=== PATIENT | female | born 1950 | race Asian ===

== ENCOUNTER 2016-12-15 18:19 | Inpatient (IN) | payer OTHER ==
[~2016-12-15] VITALS: Ht 162.6 cm; Wt 53.1 kg
[~2016-12-15 18:19] MED LIST: CLONIDINE HCL0.1 MG PO; GEMFIBROZIL600 MG PO; METFORMIN500 M1 PO
--- NOTE | 2016-12-15 18:28 | NUR ---
PT BIBA C/O SOB SINCE THIS PM. PT JUST HAD A RECENT CABG X 3 A MONTH AGO AT [facility] [place]. PLACED PT ON CM,VSS. PT A/O X4, PT'S SIDERAILS UP X 2. AWAITING DR MURILLO
--- NOTE | 2016-12-15 18:56 | NUR ---
PXRAY DONE AT BEDSIDE
--- NOTE | 2016-12-15 19:08 | NUR ---
REPORT GIVEN TO CHRISTIANO, ENDORSED PT CARE ACCORDINGLY.
[2016-12-15 19:24] LABS: BASOPHIL % 0.3 % (0-2); PLATELET COUNT 181 x10^3mcL (130-400); RED CELL DISTRIBUTION WIDTH 13.6 % (11.5-14.5)
--- NOTE | 2016-12-15 19:31 | NUR ---
PT AWAKE WITH EYES CLOSED; ABLE TO ASNWER QUESTIONS APPROPRIATELY. PT'S FAMILY FRIENDS AT BEDSIDE. PT BREATHING EVEN AND UNLABORED; PT VOMITED SMALL AMOUNT OF DARK EMESIS. BED IN HIGH FOWLERS POSITION, SUCTION AT BEDSIDE
[2016-12-15 19:33] LABS: CALCIUM 9.6 mg/dL (8.5-10.1); CARBON DIOXIDE 25.9 mmol/L (21-32); CHLORIDE SERUM 101 mmol/L (98-107); CREATININE SERUM 1.4 mg/dL (0.6-1.0); GFR1 40 mL/min; GLUCOSE SERUM 227 mg/dL (74-106); POTASSIUM SERUM 3.4 mmol/L (3.5-5.1); SODIUM SERUM 139 mmol/L (136-145)
[2016-12-15 19:37] LABS: CK-MB < 0.5 ng/mL (0-3.6); CREATINE KINASE 36 U/L (26-192); FREE T4 1.09 ng/dL (0.76-1.46); FREE THYROXINE INDEX 3.1 ug/dL (1.4-4.5)
[2016-12-15 19:38] LABS: ALBUMIN 3.9 g/dL (3.4-5.0); ALKALINE PHOSPHATASE 63 U/L (46-116); ALT/SGPT 16 U/L (14-59); AST/SGOT 16 U/L (15-37); BILIRUBIN TOTAL 0.4 mg/dL (0.20-1.00)
[2016-12-15 19:39] LABS: C REACTIVE PROTEIN < 0.2 mg/dL (<=0.9)
[2016-12-15 19:47] LABS: T3 TOTAL 0.61 ng/mL
[2016-12-15] MEDS ORDERED: METFORMIN HCL1000 MG PO (20:22)
[2016-12-15] MEDS ORDERED: METOPROLOL SUCC25 M2 PO (20:23)
[2016-12-15] MEDS ORDERED: VITAMIN D32000 I2 PO (20:24)
[2016-12-15] MEDS ORDERED: CHLORTHALIDONE25 MG PO (20:24)
[2016-12-15] MEDS ORDERED: LIPI20 PO (20:24)
[2016-12-15] MEDS ORDERED: ASPIR 8181 MG PO (20:24)
--- NOTE | 2016-12-15 20:29 | NUR ---
PT TO CT
[2016-12-15 20:35] LABS: CHOLESTEROL/HDL RATIO 2.3
--- NOTE | 2016-12-15 20:38 | NUR ---
REPORT GIVEN TO BRITTNEY TO ASSUME CARE OF PT
[2016-12-15 20:47] LABS: ERYTHROCYTE SED RATE 0 mm/hr (0-30)
--- NOTE | 2016-12-15 20:51 | NUR ---
URINE SENT TO LAB
--- NOTE | 2016-12-15 20:52 | NUR ---
RECEIVED PT FROM ED VIA [facility], CAME IN DUE TO SOB FOR 2 WEEKS AND VOMITING X1 DAY. AAOX4. DENIES HEADACHE/DIZZINESS. NO SOB NOTED, LUNG SOUNDS CTA. ON 2LPM/NC, O2 SAT=94%. DENIES CHEST PAIN/PRESSURE, NSR ON THE MONITOR. DENIES NAUSEA/VOMITING/ABDOMINAL PAIN. PT UNSURE OF THE COLOR OF THE VOMITUS BEFORE ADMISSION, NOTED BLACKISH VOMITUS ON PT'S GOWN. GENERALIZED WEAKNESS NOTED. SIDE RAILS UPX2. CALL LIGHT ON REACH. PRIMARY NURSE SHASHI AT BEDSIDE FOR CONTINUITY OF CARE
[2016-12-15 21:07] LABS: UA SPECIFIC GRAVITY 1.015 (1.005-1.035); microscopic required? YES; urine erythrocyte TRACE (NEGATIVE)
[2016-12-15 21:11] VITALS: BP 135/37
[2016-12-15 21:17] LABS: AMPHETAMINE QUAL UR NONE DETECTED (NEG <=1000)
[2016-12-15 21:21] VITALS: Ht 162.6 cm; Wt 53.1 kg
[2016-12-15 22:00] VITALS: BP 120/55
--- NOTE | 2016-12-15 22:25 | NUR ---
NOTED PT HAS SCATTERED PINPOINT REDNESS ON THE RIGHT ARM.
[2016-12-15 23:32] VITALS: BP 120/55
[2016-12-16 00:13] LABS: BASOPHIL % 0.4 % (0-2); PLATELET COUNT 145 x10^3mcL (130-400); RED CELL DISTRIBUTION WIDTH 13.5 % (11.5-14.5)
--- NOTE | 2016-12-16 01:28 | NUR ---
CALLED DR. MACKENZIE RE:K GUILLERMINA ORDER WITH LIDOCAINE.MEDS NOT AVAILABLE TIL PHARMACY OPEN LATER.OK TO START MEDS WHEN AVAILABLE.
[2016-12-16 06:24] VITALS: BP 123/44
[2016-12-16 06:45] LABS: BASOPHIL % 0.3 % (0-2); PLATELET COUNT 150 x10^3mcL (130-400); RED CELL DISTRIBUTION WIDTH 13.1 % (11.5-14.5)
--- NOTE | 2016-12-16 06:54 | NUR ---
MADE ROUNDS. PT IS AWAKE. GAVE DIABETES TEACHING. COMFORTABLY LAYING IN BED. DENIES PAIN. STATES THAT SHE FEELS MUCH BETTER HAVING THE NC IN PLACE. BED IN LOWEST POSITION. CALL LIGHT WITHIN REACH. WILL CONTINUE MONITOR AND ENDORSE ALL CARE TO ONCOMING NURSE.
[2016-12-16 07:12] LABS: CALCIUM 8.6 mg/dL (8.5-10.1); CARBON DIOXIDE 25.9 mmol/L (21-32); CREATININE SERUM 1.1 mg/dL (0.6-1.0); MAGNESIUM 1.5 mg/dL (1.8-2.4); PHOSPHOROUS 3.3 mg/dL (2.5-4.9); POTASSIUM SERUM 3.7 mmol/L (3.5-5.1)
--- NOTE | 2016-12-16 08:00 | NUR ---
PATIENT AWAKE AND ALERT, NO ACUTE DISTRESS NOTED, VITAL SIGNS STABLE. IV ACCESS INTACT TO LEFT FOREARM, IV FLUID INFUSION IN PROGRESS VIA IV PUMP. IV SITE WITHOUT SIGNS OF INFECTION OR INFILTRATION NOTED. LUNGS CLEAR, NO RESP DISTRESS, PATIENT ON O2 AT 2LPM VIA NASAL CANULA. PATIENT NPO FOR EGD PROCEDURE THIS AM. DENIES PAIN OR DISCOMFORT AT THIS TIME. SKIN WARM AND DRY, COLOR PINK, INTEGRITY INTACT. DENIES PAIN OR DISCOMFORT AT THIS TIME.
--- NOTE | 2016-12-16 09:20 | NUR ---
DR. SHAHID ON UNIT TO EXAMINE PATIENT, AND DISCUSS EGD PROCEDURE, SIGNIFICANT OTHER AT BEDSIDE, ALL QUESTIONS AND CONCERNS ADDRESSED.
[2016-12-16 09:41] VITALS: BP 138/52
--- NOTE | 2016-12-16 10:00 | NUR ---
REPORT GIVEN TO GI NURSE. GI TRUCK GREASER AT BED WITH FISH TO TRANSPORT PATIENT TO GI LAB FOR EGD.
--- NOTE | 2016-12-16 10:50 | NUR ---
PATIENT RETURNED FROM GI LAB, DROWSY BUT AROUSABLE. VITAL SIGNS STABLE. NO ACUTE RESPIRATORY DISTRESS NOTED. O2 AT 2LPM VIA NASAL CANULA,O2 SAT 98% TO 100%. PULSES PALPABLE NO EDEMA. SKIN WARM AND DRY, COLOR PINK. PATIENT DENIES PAIN OR DISCOMFORT AT THIS TIME. IV ACCESS TO LEFT FOREARM INTACT. IVF INFUSION IN PROGRESS. IV SITE WITHOUT SIGNS OF INFECTION OR INFILTRATION. SIGNIFICANT OTHER AT BEDSIDE.
[2016-12-16 11:05] VITALS: BP 122/49
--- NOTE | 2016-12-16 12:00 | NUR ---
ACCU-CHECK 109 MG/DL, NO INSULIN COVERAGE REQUIRED PER INSULIN SLIDING SCALE. PATIENT SITTING UP IN BED HAVING CLEAR LIQUID DIET.
[2016-12-16 14:00] VITALS: BP 122/54
--- NOTE | 2016-12-16 14:00 | NUR ---
TOLERATED 100% OF LUNCH MEAL, NO SIGNS OF SYMPTOMS OF NAUSEA/VOMITING.
--- NOTE | 2016-12-16 15:19 | NUR ---
Initial Nutrition Assessment Dx: Upper GI Bleed, SOB PMHx: HTN, HLD, DM, triple bypass PSHx: CABG (Triple bypass 1.5 years ago), cataract removal bilaterally, Labs: BG 104, BUN 25 H, CRE 1.1 H, Magnesium 1.5 L, H/H 10.1/31 L; (12/15) Amylase 178 H, Lipase 972 H, A1C 6.8 H Meds: Cephulac, Colace, D50%, humulin R, protonix, reglan, senokot, NaCl IVF, theragran, vitamin D, zofran Current Diet Order: Clear Liquid (x1 day) (Diet to be advanced for Lunch 12/16) and (12/17) NPO except meds (Procedure Planned) PO Intakes: None recorded yet Ht: 63", 5' 3". Wt: 116 lb, 53 kg. BMI: 20.1 kg/m2 (Normal) IBW: 115 lb, 52 kg. %IBW: 101%. UBW: Pt unsure Age: 66 Y/O F Food Allergies: None Skin: Intact. Byron 18. Edema: None GI: Active bowel sounds. Last BM 12/15. Note pt on Cephulac and Colace. Nursing Trigger: Poor PO intakes >3 days. Pt found with possible acute blood loss anemia likely secondary to gastritis vs esophageal varices, peptic ulcer disease, possible pancreatitis, possible acute respiratory failure per doctor's notes. Per doctor's progress note 12/16, Dr. Post took pt for EGD to evaluate for upper GI bleed in the morning, pending report. Pt was seen resting in bed, RN at bedside providing care. Pt reported having a cold for 2-3 months, decreased appetite at that time, however, feeling much better today, ate 100% of lunch (verified with RN). Pt also reported wanting to go home today, RD notified doctor. Problem with: N: None. V: None. D: None. C: None. Problems with: Chewing: None. Swallowing: None. Current Appetite: Good Recent Weight Change: -7 lb (Pt's report, unsure of accuracy). 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 Estimated Nutritional Needs Based CBW 116 lb, 53 kg Energy: 2553-1336 kcal/day (25-30 kcal/kg for Geriatric Maintenance) Protein: 53-63 gm/day (1-1.2 gm/kg for Geriatric Maintenance, Repletion) Fluids: 1325 ml/day (25 ml/kg for Geriatric Maintenance) or per doctor Nutrition Diagnosis Altered nutrition related labs related to endocrine dysfunction as evidenced by elevated A1C 6.8% Intervention 1. Continue Clear Liquid diet per doctor. 2. Consider advance as tolerated to Cardiac, CCHO-60 gm diet if/when medically appropriate. Monitor/Evaluate Goal: PO intakes to meet at least 50% of estimated needs with tolerance Monitor: PO intakes, tolerance to diet, labs, skin integrity, GI function, weights F/U in 3-5 days as MODERATE risk (12/19-12/21)
--- NOTE | 2016-12-16 15:20 | NUR ---
1. Continue Clear Liquid diet per doctor. 2. Consider advance as tolerated to Cardiac, CCHO-60 gm diet if/when medically appropriate.
--- NOTE | 2016-12-16 15:30 | NUR ---
DR. DAHL AT BEDSIDE TALKING WITH PATIENT AND SPOUSE ABOUT MEDICAL PLAN OF CARE, AND ADDRESSING THEIR CONCERNS AND QUESTIONS.
[2016-12-16 18:29] VITALS: BP 125/55
--- NOTE | 2016-12-16 19:00 | NUR ---
PATIENT SITTING UP IN BED, NO COMPLAINTS VOICED, DENIES N/V. PATIENT AWARE OF NPO STATUS AFTER MIDNIGHT. VITAL SIGNS STABLE. IVF INFUSION IN PROGRESS, IV SITE WITHOUT SIGNS OF INFECTION OR INFILTRATION. DENIES PAIN OR DISCOMFORT AT THIS TIME.
--- NOTE | 2016-12-16 19:59 | NUR ---
RECEIVED PT FROM AM NURSE. A/O X4. UP ON THE SIDE OF BED. NO SIGNS OF DISTRESS. NO SOB. DENIES PAIN AT THIS TIME. PULSES ARE EVEN AND PALPABLE. NC 2L. LUNG SOUNDS ARE CLEAR. BREATH SOUNDS ARE EVEN AND UNLABORED. TELE # 6 SR 62. ABD SOFT AND ROUND. AMBULATES WITH A STEADY GAIT. IV INTACT AND INFUSING WELL. BED IN LOWEST POSITION. CALL LIGHT WITHIN REACH. WILL CONTINUE TO MONITOR.
--- NOTE | 2016-12-16 20:58 | NUR ---
PT GIVEN SCHEDULE MEDS. DENIES PAIN. NO SOB. WILL CONTINUE TO MONITOR.
[2016-12-16 21:16] VITALS: BP 112/45
--- NOTE | 2016-12-17 | NUR ---
ROUNDS MADE PATIENT SLEEPING QUIETOLY BUT EASILY AWAKEN VERBALLY, PATIET INSTRUCTED AGAIN ON HER BOWEL PRES, SECOND BOTTLE OF MOVIPREP STARTED. NOTED STOOL TO BE LIGHT YELLOW WITH FEW STOOL PARTICLES. SAFETY/FALL PRECATUION MAINTAINED. PATIENT DENIES SOB, O2 MAINTAINED. WILL CONTINUE TO MONITOR.
[2016-12-17 06:00] VITALS: BP 146/52
--- NOTE | 2016-12-17 06:35 | NUR ---
ROUNDS MADE. PT IS ASLEEP BUT EASILY AROUSABLE. NO SOB. NO SIGNS OF DISTRESS. DENIES PAIN AT THIS TIME. IV INFUSING WELL. CALL LIGHT WITHIN REACH. BED IN LOWEST POSITION. WILL CONTINUE MONITOR AND ENDORSE ALL CARE TO ONCOMING NURSE.
[2016-12-17 06:41] LABS: BASOPHIL % 0.3 % (0-2); PLATELET COUNT 161 x10^3mcL (130-400); RED CELL DISTRIBUTION WIDTH 13.9 % (11.5-14.5)
--- NOTE | 2016-12-17 07:15 | NUR ---
RECEIVED PATIENT AWAKE AND ALERT IN BED, NO COMPLAINTS, TELE #1 SR 70, O2 IN PLACE, IV INTACT, CALL LIGHT WITHIN REACH AND BSC NEXT TO BED, INSTRUCT PATIENT TO CALL FOR ASSIST WHEN GET UP, PT VERBALIZE UNDERSTAND. REMIND PT NOT TO EAT OR DRINK FOR COLONOSCOPY; CONT TO MONITOR.
--- NOTE | 2016-12-17 08:06 | NUR ---
ASSIST PATIENT TO BSC, STOOL CLEAR YELLOWISH WATERY, BED LINENS CHANGE AT THIS TIME. ASSIST PATIENT BACK TO BED, CALL LIGHT WITHIN REACH.
--- NOTE | 2016-12-17 08:41 | NUR ---
PATIENT OFF FLOOR TO GI LAB VIA BED ACCOMPANIED BY NURSE AT THIS TIME.
--- NOTE | 2016-12-17 09:50 | NUR ---
RECEIVED PATIENT BACK FROM GI LAB, AWAKE AND ALERT, DENIES PAIN, HAVE EPISODE OF WATERY STOOL, INCONT CARE PROVIDED BY 2 STAFFS, LINENS AND GOWN CHANGED, VSS, ICE WATER OFFERED PER REQUEST. CALL LIGHT WITHIN REACH. NEEDS ANTICIPATED.
[2016-12-17 10:02] VITALS: BP 146/64
[2016-12-17 10:43] LABS: CALCIUM 9.3 mg/dL (8.5-10.1); CARBON DIOXIDE 28.8 mmol/L (21-32); CREATININE SERUM 1.1 mg/dL (0.6-1.0); POTASSIUM SERUM 4.1 mmol/L (3.5-5.1)
[2016-12-17 10:51] VITALS: BP 146/64
--- NOTE | 2016-12-17 11:07 | NUR ---
PATIENT WAS FOUND ON FLOOR IN BATHROOM BY HOUSE KEEPING, NURSE ASSIST PATIENT BACK TO BED; PATIENT IS AWAKE, ALERT, AND ORIENTED X 4, DENIES PAIN AT THIS TIME. DR. DAHL HERE IN PATIENT ROOM EXAM PATIENT. PER PATIENT NEED TO GO TO BATHROOM QUICK DID NOT USE CALL LIGHT TO CALL FOR FURNACE FIRER DUE TO HAVE DIARRHEA CAN'T WAIT, GOT TO BATHROOM LEGS IS WEAK AND SLIDING DOWN TO FLOOR. RE-INFORCED PATIENT TO USE CALL LIGHT AND USE BSC PROVIDED TO PATIENT. PATIENT VERBALIZE UNDERSTAND.
[2016-12-17] MEDS ORDERED: PEP20 PO (11:59)
--- NOTE | 2016-12-17 13:56 | NUR ---
PATIENT RESTING IN BED NO COMPLAINTS, AT BEDSIDE; DISCHARGE INSTRUCTION AND PRESCIPTIONS GIVEN TO PATIENT, ALL QUESTION ANSWERED. IV DC'D AND INTACT. ALL BELONGINGS WITH PATIENT.
--- NOTE | 2016-12-17 13:57 | NUR ---
IV DC'D CATHETER INTACT.
== END 2016-12-17 14:20 | disposition home or self-care (01) | DRG 377 ==
LOC: ED 18:19 → DU 19:34
PROVIDERS: Internal Medicine Gastroenterology; Specialist; ADMIT Family Medicine
PROC: 0DB68ZX Excision of Stomach, Via Natural or Artificial Opening Endoscopic, Diagnostic (ICD-10-PCS; principal; 2016-12-16 09:45)
PROC: 0DJD8ZZ Inspection of Lower Intestinal Tract, Via Natural or Artificial Opening Endoscopic (ICD-10-PCS; 2016-12-17)
DX: K29.71 Gastritis, unspecified, with bleeding (principal); N17.0 Acute kidney failure with tubular necrosis; I50.43 Acute on chronic combined systolic (congestive) and diastolic (congestive) heart failure; K85.90 Acute pancreatitis without necrosis or infection, unspecified; D62 Acute posthemorrhagic anemia; D68.69 Other thrombophilia; E11.65 Type 2 diabetes mellitus with hyperglycemia; E11.51 Type 2 diabetes mellitus with diabetic peripheral angiopathy without gangrene; I11.0 Hypertensive heart disease with heart failure; J06.9 Acute upper respiratory infection, unspecified; E87.6 Hypokalemia; K59.00 Constipation, unspecified; E78.5 Hyperlipidemia, unspecified; F12.10 Cannabis abuse, uncomplicated; Z79.82 Long term (current) use of aspirin; Z68.20 Body mass index [BMI] 20.0-20.9, adult; Z95.1 Presence of aortocoronary bypass graft; Z79.84 Long term (current) use of oral hypoglycemic drugs; I25.10 Atherosclerotic heart disease of native coronary artery without angina pectoris
CPT/HCPCS: 43235; 45378; 80307; 82962; 83880; 84439; C9113; J1200; J1610; J2250; J2310; J2405; J2765; J3010; J3475; J3480; J3490; J7030; J7620; Q0092; Q9967

== ENCOUNTER 2018-05-10 11:32 | Emergency (ER) | payer OTHER ==
[~2018-05-10] VITALS: Ht 160 cm; Wt 48.8 kg
[~2018-05-10 11:32] MED LIST changes: +ASPIR 8181 MG PO; +CHLORTHALIDONE25 MG PO; +LIPI20 PO; +METFORMIN HCL1000 MG PO; +METOPROLOL SUCC25 M2 PO; +PEP20 PO; +VITAMIN D32000 I2 PO
[2018-05-10 11:37] VITALS: Ht 160 cm; Wt 48.8 kg
[2018-05-10 11:54] VITALS: BP 132/93
== END 2018-05-10 12:09 | disposition home or self-care (01) ==
LOC: ED 11:32
DX: B09 Unspecified viral infection characterized by skin and mucous membrane lesions (principal); I10 Essential (primary) hypertension; E11.9 Type 2 diabetes mellitus without complications

== ENCOUNTER 2018-06-15 11:58 | Emergency (ER) | payer OTHER ==
[~2018-06-15] VITALS: Ht 162.6 cm; Wt 49.9 kg
[2018-06-15 12:05] VITALS: BP 136/62; Ht 162.6 cm; Wt 49.9 kg
== END 2018-06-15 12:51 | disposition home or self-care (01) ==
LOC: ED 11:58
DX: G62.9 Polyneuropathy, unspecified (principal); E11.9 Type 2 diabetes mellitus without complications

== ENCOUNTER 2019-01-12 11:39 | Emergency (ER) | payer OTHER ==
[~2019-01-12] VITALS: Ht 160 cm; Wt 47.2 kg
[2019-01-12 11:45] VITALS: Ht 160 cm; Wt 47.2 kg
[2019-01-12 12:41] LABS: BASOPHIL % 0.2 % (0-2); PLATELET COUNT 396 x10^3mcL (130-400)
[2019-01-12 12:43] LABS: RED CELL DISTRIBUTION WIDTH 16.1 % (11.5-14.5)
[2019-01-12 12:45] LABS: CALCIUM 9.4 mg/dL (8.5-10.1); CARBON DIOXIDE 27.4 mmol/L (21-32); CREATININE SERUM 1.3 mg/dL (0.6-1.0); POTASSIUM SERUM 4.4 mmol/L (3.5-5.1)
[2019-01-12 12:58] LABS: BILIRUBIN TOTAL 0.4 mg/dL (0.20-1.00); TOTAL PROTEIN, SERUM 7.9 g/dL (6.4-8.2)
[2019-01-12 12:59] LABS: ALBUMIN 2.8 g/dL (3.4-5.0)
[2019-01-12 14:03] VITALS: BP 121/92
== END 2019-01-12 14:03 | disposition home or self-care (01) ==
LOC: ED 11:39
PROVIDERS: Emergency Medicine
DX: J45.901 Unspecified asthma with (acute) exacerbation (principal); J18.9 Pneumonia, unspecified organism; I10 Essential (primary) hypertension; E11.9 Type 2 diabetes mellitus without complications; Z95.1 Presence of aortocoronary bypass graft
CPT/HCPCS: 36415; J7512; J7613; J7644; Q0092

== ENCOUNTER 2019-08-17 09:30 | Emergency (ER) | payer OTHER ==
[~2019-08-17] VITALS: Ht 162.6 cm; Wt 50.3 kg
[2019-08-17 10:33] VITALS: BP 117/43; Ht 162.6 cm; Wt 50.3 kg
== END 2019-08-17 11:51 | disposition left against medical advice (07) ==
LOC: ED 09:30
DX: Z53.21 Procedure and treatment not carried out due to patient leaving prior to being seen by health care provider (principal)